=== PATIENT | male | born 1945 | race Caucasian/White ===

== ENCOUNTER 2024-03-30 15:00 | Inpatient (IN) | payer MEDICARE ==
[2024-03-31 14:27] VITALS: BMI 23.7
[2024-03-31 15:24] LABS: INR-International Normal Ratio 1.3; PTT 33.2 sec (22.9-36.1); Prothrombin Time 16.1 sec (12.0-14.7)
[2024-03-31 16:08] LABS: #Basophils 0.08 10x3/uL (0.0-0.2); %Basophils 0.9 % (0.0-1.0); %Eosinophils 3.8 % (0.0-10.0); %Lymphocytes 18.6 % (21.0-51.0); %Monocytes 10.4 % (0.0-10.0); %Neutrophils 65.7 % (42.0-75.0); Hematocrit 45.4 % (42.0-52.0); Hemoglobin 15.3 g/dL (14.0-18.0); Mean Corpuscular HGB CONC 33.7 g/dL (32.0-36.0); Mean Corpuscular Hemoglobin 29.9 pg (27.0-31.0); Mean Corpuscular Volume 88.7 fL (78.0-98.0); Mean Platelet Volume 10.2 fL (7.4-10.4); Platelet Count 247 10x3/uL (130-400); RBC Distribution Width 12.5 % (11.5-14.5); Red Blood Cell (RBC) Count 5.12 mill/uL (4.70-6.10)
[2024-03-31 16:48] LABS: Chloride 106 mmol/L (98-107); Potassium 4.1 mmol/L (3.5-5.1); Sodium 139 mmol/L (136-145)
[2024-03-31 16:49] LABS: Albumin 3.9 g/dL (3.1-4.5); Calcium 9.1 mg/dL (7.8-10.44); Glucose 88 mg/dL (83-110)
[2024-03-31 16:50] LABS: Globulin 3.1 g/dL (2.4-3.5)
[2024-03-31 16:51] LABS: Anion Gap 15 mmol/L (10-20); Carbon Dioxide 22 mmol/L (23-31)
[2024-03-31 16:52] LABS: Alkaline Phosphatase 60 U/L (40-110); Bilirubin, Total 0.7 mg/dL (0.3-1.2)
[2024-03-31 16:53] LABS: BUN (Urea Nitrogen) 19 mg/dL (8.4-25.7); Calc. Creatinine Clearance 83 mL/min (70-130); Estimated GFR 89
[2024-03-31 16:55] LABS: ALT (SGPT) 8 U/L (Less than 45); AST (SGOT) 21 U/L (11-34)
[2024-04-05] MEDS ORDERED: Protamine Sulfate 50 MG/5 ML VIAL ONE (08:40)
[2024-04-05] MEDS ORDERED: CEFAZOLIN 2 GM VIAL ONE (08:40)
[2024-04-05] MEDS ORDERED: Heparin 10,000 UNITS/ 10 ML VIAL ONE (08:40)
[2024-04-05] MEDS ORDERED: Sevoflurane 250 ML INH ANEST BOTTLE ONE (09:50)
[2024-04-05] MEDS ORDERED: fentaNYL 50 mcg/mL 1 mL Vial ONE (09:56)
[2024-04-05] MEDS ORDERED: Rocuronium Bromide 10 MG/ML (10ML VIAL) ONE (10:05)
[2024-04-05] MEDS ORDERED: PROPOFOL 200 MG/20 ML VIAL ONE (10:05)
[2024-04-05] MEDS ORDERED: Dexamethasone 20 MG/5 ML VIAL ONE (10:05)
[2024-04-05] MEDS ORDERED: PHENYLEPHRINE-NS 100 MCG/ML 10 ML SYRINGE ONE (10:05)
[2024-04-05] MEDS ORDERED: Iopamidol 370 76% 100 ML VIAL ONE (10:17)
[2024-04-05] MEDS ORDERED: Ondansetron PF 4 MG/2 ML Vial ONE (10:24)
== END 2024-04-05 15:06 | disposition home or self-care (01) | DRG 274 ==
LOC: SURG A 04-05 06:56
PROVIDERS: ADMIT Internal Medicine Cardiovascular Disease; ATTEND Internal Medicine Cardiovascular Disease
PROC: 02L73DK Occlusion of Left Atrial Appendage with Intraluminal Device, Percutaneous Approach (ICD-10-PCS; principal; 2024-04-05)
PROC: B245ZZ4 Ultrasonography of Left Heart, Transesophageal (ICD-10-PCS; 2024-04-05)
DX: I48.0 Paroxysmal atrial fibrillation (principal); Z00.6 Encounter for examination for normal comparison and control in clinical research program; E78.00 Pure hypercholesterolemia, unspecified; R42 Dizziness and giddiness; I49.5 Sick sinus syndrome; I44.0 Atrioventricular block, first degree; Z95.0 Presence of cardiac pacemaker; Z79.01 Long term (current) use of anticoagulants
CPT/HCPCS: 33340; 36415; 80053; 85025; 85347; 85610; 85730; 86850; 86900; 86901; 93306; 93312; C1759; C1760; C1889; C1894; J1100; J1644; J2405; J2704; J2720; J3010; Q9967

== ENCOUNTER 2024-03-31 14:00 | Outpatient (CLI) | payer MEDICARE | END 2024-03-31 14:01 | disposition home or self-care (01) | LOC: LABBT 14:00 | PROVIDERS: ATTEND Internal Medicine Cardiovascular Disease | DX: Z01.810 Encounter for preprocedural cardiovascular examination (principal) | CPT/HCPCS: 93005; 93010 ==

== ENCOUNTER 2024-04-29 11:05 | Outpatient (CLI) | payer MEDICARE | END 2024-04-29 11:06 | disposition home or self-care (01) | LOC: MRI 11:05 | PROVIDERS: ATTEND Psychiatry & Neurology Neurology | DX: R25.1 Tremor, unspecified (principal); I67.82 Cerebral ischemia; R93.0 Abnormal findings on diagnostic imaging of skull and head, not elsewhere classified | CPT/HCPCS: 70551; 71046; 76014; 76018 ==